=== PATIENT | female | born 1980 | race African-American/Black ===

== ENCOUNTER → 2019-03-18 | Outpatient (CLI) | payer OTHER | LOC: MC.RAD 12:42 | DX: N60.12 Diffuse cystic mastopathy of left breast (principal) | CPT/HCPCS: G0279 ==

== ENCOUNTER 2022-06-15 05:46 | Emergency (ER) | payer OTHER ==
[~2022-06-15] VITALS: Ht 167.6 cm; Wt 88.6 kg
[2022-06-15 05:58] VITALS: TEMP 98.7
[2022-06-15 06:40] LABS: BASO % 0.5 % (0.0-2.0); EOS # 0.1 K/mm3 (0.0-0.7); EOS % 1.6 % (0.0-4.0); GRAN # 5.8 K/mm3 (1.4-6.5); GRAN % 69.8 % (42.2-75.2); LYMPH # 1.7 K/mm3 (1.2-3.4); LYMPH % 20.4 % (20.0-51.0); MEAN CELL VOLUME 70 fl (80.0-100.0); MEAN CORPUSCULAR HGB CONC 30 g/dl (33.0-37.0); MEAN PLATELET VOLUME 10.7 fl (7.4-10.4); MONO # 0.6 K/mm3 (0.1-0.6); MONO % 7.5 % (1.7-9.3); PLATELET COUNT 340 K/mm3 (130-400); RED BLOOD COUNT 4.39 M/mm3 (4.10-5.30); REDCELL DISTRIBUTION WIDTH-CV 17.6 % (11.5-14.5)
[2022-06-15 06:54] LABS: INR 1.1 (0.8-3.0); PROTHROMBIN TIME 12.9 SECONDS (9.7-12.8)
[2022-06-15 06:55] LABS: ALANINE AMINOTRANSFERASE 22 U/L (0-55); ALBUMIN 3.4 gm/dL (3.5-5.0); ALKALINE PHOSPHATASE 56 U/L (40-150); ANION GAP 10 mmol/L (7-16); AST,SGOT 20 U/L (5-34); BILIRUBIN,TOTAL 0.6 mg/dL (0.2-1.2); BLOOD UREA NITROGEN 12 mg/dL (7-19); CALCIUM 8.9 mg/dL (8.4-10.2); CARBON DIOXIDE 21 mmol/L (22-29); CHLORIDE 109 mmol/L (98-107); CREATININE, serum 0.84 mg/dL (0.57-1.11); GLUCOSE 124 mg/dL (70-99); POTASSIUM 3.6 mmol/L (3.5-4.5); SODIUM 140 mmol/L (136-145); TOTAL PROTEIN 7.5 gm/dL (6.2-8.1)
[2022-06-15 06:56] LABS: HEMATOCRIT 30.6 % (37.0-47.0); HEMOGLOBIN 9.3 g/dl (12.5-16.0); MEAN CORPUSCULAR HEMOGLOBIN 21 pg (27-31)
[2022-06-15 06:57] LABS: PARTIAL THROMBOPLASTIN TIME 34.7 SECONDS (26.0-37.0)
[2022-06-15 07:04] LABS: TROPONIN-I < 0.010 ng/mL (0.00-0.033)
[2022-06-15 08:20] VITALS: BP 120/68; PULSE 93
== END 2022-06-15 08:23 | disposition home or self-care (01) ==
LOC: COL.ER 05:46
PROVIDERS: Family Medicine
DX: J06.9 Acute upper respiratory infection, unspecified (principal); R00.2 Palpitations; Z20.822 Contact with and (suspected) exposure to COVID-19
CPT/HCPCS: J1885; Q9967

== ENCOUNTER 2022-11-12 12:55 | Emergency (ER) | payer OTHER ==
[~2022-11-12] VITALS: Ht 165.1 cm; Wt 80.9 kg
[2022-11-12 13:01] VITALS: TEMP 99
[2022-11-12 13:50] LABS: STREP SCREEN POSITIVE
[2022-11-12] MEDS ORDERED: CEPHALEXIN500 M1 PO (14:01)
[2022-11-12 14:14] VITALS: BP 120/65; PULSE 87
== END 2022-11-12 14:18 | disposition home or self-care (01) ==
LOC: COL.ER 12:55
PROVIDERS: Physician Assistant
DX: J02.0 Streptococcal pharyngitis (principal); H92.03 Otalgia, bilateral

== ENCOUNTER 2024-03-13 00:46 | Emergency (ER) | payer OTHER ==
[~2024-03-13] VITALS: Ht 165.1 cm; Wt 92.7 kg
[~2024-03-13 00:46] MED LIST: CEPHALEXIN500 M1 PO
[2024-03-13 01:00] VITALS: TEMP 98.2
[2024-03-13] MEDS ORDERED: diphenhydrAMINE 50 MG/ML 1 ML VIAL IV ONE (03:00)
[2024-03-13] MEDS ORDERED: Ketorolac 15 MG/ML VIAL IV ONE (03:00)
[2024-03-13] MEDS ORDERED: NS 1,000 ML IV ONE (03:00)
[2024-03-13 03:20] LABS: BASO % 0.7 % (0.0-2.0); EOS # 0.2 K/mm3 (0.0-0.7); EOS % 3.8 % (0.0-4.0); GRAN # 2.4 K/mm3 (1.4-6.5); GRAN % 40.6 % (42.2-75.2); LYMPH # 2.8 K/mm3 (1.2-3.4); LYMPH % 47.2 % (20.0-51.0); MEAN CELL VOLUME 80 fl (80.0-100.0); MEAN CORPUSCULAR HEMOGLOBIN 24 pg (27-31); MEAN CORPUSCULAR HGB CONC 30 g/dl (33.0-37.0); MEAN PLATELET VOLUME 10.6 fl (7.4-10.4); MONO # 0.5 K/mm3 (0.1-0.6); MONO % 7.5 % (1.7-9.3); PLATELET COUNT 293 K/mm3 (130-400); RED BLOOD COUNT 4.26 M/mm3 (4.10-5.30); REDCELL DISTRIBUTION WIDTH-CV 16.4 % (11.5-14.5)
[2024-03-13 03:23] LABS: HEMATOCRIT 33.9 % (37.0-47.0)
[2024-03-13 03:35] LABS: ALBUMIN 3.6 g/dL (3.5-5.0); BILIRUBIN,TOTAL 0.3 mg/dL (0.2-1.2); CALCIUM 9.3 mg/dL (8.4-10.2); CREATININE, serum 0.81 mg/dL (0.57-1.11); POTASSIUM 4.2 mEq/L (3.5-4.5); TOTAL PROTEIN 7.3 g/dl (6.2-8.1)
[2024-03-13 03:41] LABS: TROPONIN-I 0.011 ng/mL (0.00-0.033)
[2024-03-13 04:22] VITALS: BP 124/70; PULSE 64
== END 2024-03-13 04:23 | disposition home or self-care (01) ==
LOC: COL.ER 00:46
PROVIDERS: Personal Emergency Response Attendant
DX: R07.2 Precordial pain (principal)
CPT/HCPCS: J0780; J1200; J1885; J7030